=== PATIENT | male | born 1990 | race Caucasian/White ===

== ENCOUNTER 2022-05-14 12:57 | Emergency (ER) | payer OTHER, SELFPAY ==
[2022-05-14 14:39] VITALS: BP 146/100; PULSE 100; RESP 14; TEMP 36.9; O2SAT 98; BMI 29.5
[2022-05-14 17:01] VITALS: BP 159/114; O2SAT 98
[2022-05-14 17:05] VITALS: BP 159/114; O2SAT 96
--- NOTE | 2022-05-14 17:46 | ED_ITS ---
HPI - Extremity Problem General: Chief complaint: Extremity Problem,Nontraumatic Stated complaint: dislocated right shoulder Time Seen by Provider: 05/14/22 17:04 History of Present Illness: Patient comes in with right shoulder pain. States that last night he moved his arm wrong and dislocated his right shoulder. States that this is not new for him. States that he has done this a few times in the past and has had an MRI and has seen orthopedic surgery but does not like medications and does not want anesthesia for surgery. States that he does not want any sedation here and asks if we can numb it with lidocaine prior to reduction. I informed him that I have never injected his shoulder with lidocaine prior to reduction but that I was happy to try. However I was able to maintain constant pressure while talking to him and reduce it at the bedside without complication. Associated symptoms: Deny chest pain, fever(s) or rash Review of Systems Const: Denies: fever(s) or body aches Eyes: Denies: change in vision or blurry vision ENMT: Denies: throat pain or odynophagia Card: Denies: chest pain or palpitations Resp: Denies: dyspnea or productive cough GI: Denies: abdominal pain, nausea or vomiting : Denies: flank pain or dysuria Musc: Reports: joint pain and deformity Skin/Breast: Denies: rash or pruritus Neuro: Denies: headache(s) or numbness in extremities Psych: Denies: anxiety or change in appetite Endo: Denies: polyuria or excessive sweating Physical Exam Const: COMMON NORMALS: patient oriented x3, healthy appearing and alert HENMT: COMMON NORMALS: normocephalic and atraumatic HEAD & SCALP: normocephalic and atraumatic Eye: COMMON NORMALS: Equal, round and reactive pupils present and EOMs intact bilaterally PUPIL: Yes Equal, round and reactive pupils present Neck/C-Spine: COMMON NORMALS: full ROM and supple Resp: COMMON NORMALS: normal respiratory effort, No retractions and No use of accessory muscles Extremity: OTHER: Deformity of right shoulder with limited range of motion Neuro: COMMON NORMALS: patient oriented x3 SENSORIUM/ORIENTATION: Yes alert Psych: COMMON NORMALS: mental status grossly normal and cooperative Skin: COMMON NORMALS: no rashes or lesions noted and no wounds GENERAL SKIN EXAM: no rashes or lesions noted Course Vital Signs: Vital signs: Vital Signs Temperature 98.5 F 05/14/22 14:39 Pulse Rate 100 05/14/22 14:39 Respiratory Rate 14 05/14/22 14:39 Blood Pressure 159/114 05/14/22 17:05 Pulse Oximetry 96 05/14/22 17:05 Oxygen Delivery Me thod 05/14/22 14:39 MDM - Extremity (Nontraumatic) Medical Decision Making Patient comes in with right shoulder pain. States that last night he moved his arm wrong and dislocated his right shoulder. States that this is not new for him. States that he has done this a few times in the past and has had an MRI and has seen orthopedic surgery but does not like medications and does not want anesthesia for surgery. States that he does not want any sedation here and asks if we can numb it with lidocaine prior to reduction. I informed him that I have never injected his shoulder with lidocaine prior to reduction but that I was happy to try. However I was able to maintain constant pressure while talking to him and reduce it at the bedside without complication. On physical exam prior to reduction he has a palpable absence in the glenoid fossa with anterior dislocation of the humeral head. After reduction this deformity is resolved, and he has full range of motion of his shoulder again. He does not want a repeat x-ray. I agree that it is unnecessary. Will discharge with precautions to return for worsening or changing symptoms. Discharge Plan Discharge Patient Disposition: Home Clinical Impression: Dislocated shoulder Condition: Stable Discharge Orders: Discharge ED (Routine); Ordered 05/14/22 Ordered By: Gen Londono Patient Instructions: Shoulder Dislocation (ED) Coding Level of Care Code ED Information Technology Associate for Jannet Morales
[2022-05-14 17:56] VITALS: BP 143/97; PULSE 88; RESP 19; O2SAT 97
== END 2022-05-14 17:57 | disposition home or self-care (01) ==
PROVIDERS: Emergency Provider Emergency Medicine
DX: S43.004A Unspecified dislocation of right shoulder joint, initial encounter (principal); X58.XXXA Exposure to other specified factors, initial encounter
CPT/HCPCS: 29240; 99283